=== PATIENT | female | born 1975 | race Caucasian/White ===

== ENCOUNTER 2019-06-07 20:23 | Emergency (ER) | payer MEDICAID ==
[~2019-06-07] VITALS: Ht 167.6 cm; Wt 125.0 kg
[~2019-06-07 20:23] MED LIST: DICL50TA8 PO; IBUP-1985 PO
[2019-06-07] MEDS ORDERED: ketorolac trometh inj. 60 MG/2 ML VIAL IM ONE (20:45)
[2019-06-07] MEDS ORDERED: triamcinolone acetonide 40mg/ml inj IM ONE (20:45)
[2019-06-07] MEDS ORDERED: NAPR-56 PO (20:48)
[2019-06-07] MEDS ORDERED: HYDR-4383 PO (20:48)
[2019-06-07 21:24] VITALS: BP 133/95
== END 2019-06-07 21:25 | disposition home or self-care (01) ==
LOC: ER 20:23
DX: G56.01 Carpal tunnel syndrome, right upper limb (principal); Z88.6 Allergy status to analgesic agent; Z88.5 Allergy status to narcotic agent; Z79.899 Other long term (current) drug therapy
CPT/HCPCS: 29125; 96372; 99283; J1885; J3301

== ENCOUNTER 2019-07-28 08:53 | Emergency (ER) | payer MEDICAID ==
[~2019-07-28] VITALS: Ht 167.6 cm; Wt 127.3 kg
[~2019-07-28 08:53] MED LIST changes: +HYDR-4383 PO
[2019-07-28] MEDS ORDERED: ketorolac tromethamine 15mg/ml inj. IM ONE (09:45)
--- NOTE | 2019-07-28 09:57 | NUR ---
TO CT VIA W/C
[2019-07-28 10:05] LABS: BASOPHILS % (AUTO) 0.6 % (0-1); EOSINOPHILS # (AUTO) 0.3 X10'3 (0-0.9); EOSINOPHILS % (AUTO) 4.5 % (0-6); HEMATOCRIT 34.8 % (35.0-45.0); HEMOGLOBIN 11.5 g/dl (12.0-16.0); LYMPHOCYTES # (AUTO) 1.8 X10'3 (1.1-4.8); MEAN CORPUSCULAR HEMOGLOBIN 30.3 PG (27.0-31.0); MEAN CORPUSCULAR VOLUME 91.7 FL (78-98); MEAN PLATELET VOLUME 6.6 FL (7.4-10.4); MONOCYTES # (AUTO) 0.4 X10'3 (0-0.9); MONOCYTES % (AUTO) 6.5 % (2-12); NEUTROPHILS # (AUTO) 3.4 X10'3 (1.8-7.7); NEUTROPHILS % (AUTO) 57.4 % (42-75); PLATELET COUNT 376 X10'3 (140-440); RED CELL DISTRIBUTION WIDTH 13.8 % (11.5-14.5); WHITE BLOOD COUNT 5.9 X10'3 (4.5-11.0)
[2019-07-28 10:20] LABS: ALANINE AMINOTRANSFERASE 14 U/L (12-78); ALBUMIN 2.8 G/DL (3.4-5.0); ALBUMIN/GLOBULIN RATIO 0.8 (1.1-1.5); ALKALINE PHOSPHATASE 95 IU/L (46-116); ANION GAP 8 (8-16); ASPARTATE AMINO TRANSFERASE 15 U/L (10-37); BILIRUBIN,TOTAL 0.2 MG/DL (0.1-1.0); BLOOD UREA NITROGEN 19 MG/DL (7-18); CALCIUM 8.3 MG/DL (8.5-10.1); CHLORIDE 112 MMOL/L (99-107); CREATININE 0.76 MG/DL (0.40-0.90); GLUCOSE 88 MG/DL (70-104); POTASSIUM 4.2 MMOL/L (3.5-5.1); SODIUM 145 MMOL/L (135-145); TOTAL CARBON DIOXIDE 24.7 MMOL/L (24-32); TOTAL PROTEIN 6.5 G/DL (6.4-8.2); eGFR 84 ML/MIN
[2019-07-28] MEDS ORDERED: LORazepam 1 MG tablet PO ONE (11:50)
[2019-07-28 14:34] VITALS: BP 115/60
[2019-07-28] MEDS ORDERED: TRAM50TA2 PO (14:43)
== END 2019-07-28 14:57 | disposition home or self-care (01) ==
LOC: ER 08:54
DX: S16.1XXA Strain of muscle, fascia and tendon at neck level, initial encounter (principal); R51 Headache; G89.29 Other chronic pain; Z88.6 Allergy status to analgesic agent; Z88.5 Allergy status to narcotic agent; Z88.8 Allergy status to other drugs, medicaments and biological substances; Z79.899 Other long term (current) drug therapy; X58.XXXA Exposure to other specified factors, initial encounter; Y93.89 Activity, other specified; Y92.89 Other specified places as the place of occurrence of the external cause; Y99.8 Other external cause status
CPT/HCPCS: 36415; 72125; 72141; 80053; 85025; 85610; 96372; 99284; J1885

== ENCOUNTER 2019-08-22 19:17 | Emergency (ER) | payer MEDICAID ==
[~2019-08-22] VITALS: Ht 167.6 cm; Wt 131.8 kg
[~2019-08-22 19:17] MED LIST changes: +TRAM50TA2 PO
[2019-08-22] MEDS ORDERED: ROBDML PO (20:45)
[2019-08-22] MEDS ORDERED: BENZ-16 PO (20:45)
[2019-08-22 20:56] VITALS: BP 148/78
== END 2019-08-22 20:53 | disposition home or self-care (01) ==
LOC: ER 19:18
DX: J06.9 Acute upper respiratory infection, unspecified (principal); G89.29 Other chronic pain; Z88.6 Allergy status to analgesic agent; Z88.8 Allergy status to other drugs, medicaments and biological substances; Z79.899 Other long term (current) drug therapy; Z79.1 Long term (current) use of non-steroidal anti-inflammatories (NSAID)
CPT/HCPCS: 99283

== ENCOUNTER 2020-08-15 15:30 | Emergency (ER) | payer MEDICAID, OTHER ==
[~2020-08-15] VITALS: Ht 167.6 cm; Wt 131.8 kg
[~2020-08-15 15:30] MED LIST changes: -TRAM50TA2 PO
--- NOTE | 2020-08-15 15:31 | NUR ---
14 YEAR OLD DAUGHTER OLIVER IS HERE WITH PT.
[2020-08-15] MEDS ORDERED: HYDROcodone/acetaminophen 5mg/325mg tablet PO ONE (16:40)
[2020-08-15] MEDS ORDERED: ondansetron 4mg rapidly disintigrating tab PO ONE (16:40)
[2020-08-15 17:35] VITALS: BP 133/97
== END 2020-08-15 17:36 | disposition home or self-care (01) ==
LOC: ER 15:30
DX: R07.89 Other chest pain (principal); R11.0 Nausea; G89.29 Other chronic pain; Z72.89 Other problems related to lifestyle; Z88.8 Allergy status to other drugs, medicaments and biological substances; Z88.5 Allergy status to narcotic agent; Z79.899 Other long term (current) drug therapy; V87.7XXA Person injured in collision between other specified motor vehicles (traffic), initial encounter; Y93.89 Activity, other specified; Y92.89 Other specified places as the place of occurrence of the external cause; Y99.8 Other external cause status
CPT/HCPCS: 71045; 93005; 99283

== ENCOUNTER 2020-12-01 08:52 | Emergency (ER) | payer MEDICAID, OTHER ==
[~2020-12-01] VITALS: Ht 167.6 cm; Wt 130.0 kg
[2020-12-01 09:50] LABS: BASOPHILS # (AUTO) 0.1 X10'3 (0-0.2); EOSINOPHILS # (AUTO) 0.3 X10'3 (0-0.9); EOSINOPHILS % (AUTO) 4.9 % (0-6); HEMATOCRIT 30.8 % (35.0-45.0); HEMOGLOBIN 9.8 g/dl (12.0-16.0); LYMPHOCYTES # (AUTO) 1.3 X10'3 (1.1-4.8); MEAN CORPUSCULAR HEMOGLOBIN 25.5 PG (27.0-31.0); MEAN CORPUSCULAR VOLUME 79.7 FL (78-98); MEAN PLATELET VOLUME 6.1 FL (7.4-10.4); MONOCYTES # (AUTO) 0.4 X10'3 (0-0.9); MONOCYTES % (AUTO) 6.6 % (2-12); NEUTROPHILS # (AUTO) 3.9 X10'3 (1.8-7.7); NEUTROPHILS % (AUTO) 65.5 % (42-75); PLATELET COUNT 485 X10'3 (140-440); RED BLOOD COUNT 3.86 X10'6 (4.20-5.60)
[2020-12-01 10:06] LABS: ALANINE AMINOTRANSFERASE 15 U/L (12-78); ALBUMIN 3.2 G/DL (3.4-5.0); ALBUMIN/GLOBULIN RATIO 0.8 (1.1-1.5); ALKALINE PHOSPHATASE 106 IU/L (46-116); ANION GAP 8 (8-16); ASPARTATE AMINO TRANSFERASE 18 U/L (10-37); BILIRUBIN,TOTAL 0.3 MG/DL (0.1-1.0); BLOOD UREA NITROGEN 20 MG/DL (7-18); BUN/CREATININE RATIO 20.2 (6.6-38.0); CALCIUM 8.5 MG/DL (8.5-10.1); CHLORIDE 106 MMOL/L (99-107); CREATININE 0.99 MG/DL (0.40-0.90); GLUCOSE 99 MG/DL (70-104); POTASSIUM 4.5 MMOL/L (3.5-5.1); SODIUM 138 MMOL/L (135-145); TOTAL CARBON DIOXIDE 24.2 MMOL/L (24-32); TOTAL PROTEIN 7.1 G/DL (6.4-8.2); eGFR 61 ML/MIN
[2020-12-01] MEDS ORDERED: BUSP10TA11 PO (12:36)
[2020-12-01 12:47] VITALS: BP 159/85
== END 2020-12-01 13:22 | disposition home or self-care (01) ==
LOC: ER 08:52
DX: R07.89 Other chest pain (principal); F41.9 Anxiety disorder, unspecified; G89.29 Other chronic pain; F17.200 Nicotine dependence, unspecified, uncomplicated; Z72.89 Other problems related to lifestyle; Z88.8 Allergy status to other drugs, medicaments and biological substances; Z88.5 Allergy status to narcotic agent; Z79.899 Other long term (current) drug therapy
CPT/HCPCS: 36415; 71045; 80053; 83880; 84484; 85025; 93005; 99285

== ENCOUNTER 2021-01-29 05:28 | Day surgery (SDC) | payer MEDICAID ==
[2021-01-23 15:20] LABS: BASOPHILS % (AUTO) 0.6 % (0-1); EOSINOPHILS # (AUTO) 0.2 X10'3 (0-0.9); EOSINOPHILS % (AUTO) 3.1 % (0-6); LYMPHOCYTES # (AUTO) 2.2 X10'3 (1.1-4.8); LYMPHOCYTES % (AUTO) 33.7 % (21-51); MEAN CORPUSCULAR HEMOGLOBIN 23.4 PG (27.0-31.0); MEAN CORPUSCULAR HGB CONC 31.4 g/dL (33.0-36.5); MEAN CORPUSCULAR VOLUME 74.5 FL (78-98); MEAN PLATELET VOLUME 6.2 FL (7.4-10.4); MONOCYTES # (AUTO) 0.4 X10'3 (0-0.9); MONOCYTES % (AUTO) 6.2 % (2-12); NEUTROPHILS # (AUTO) 3.6 X10'3 (1.8-7.7); NEUTROPHILS % (AUTO) 56.4 % (42-75); PRE OP HEMATOCRIT 30.5 % (35.0-45.0); PRE OP PLATELET COUNT 556 X10'3 (140-440); RED BLOOD COUNT 4.09 X10'6 (4.20-5.60); RED CELL DISTRIBUTION WIDTH 16.3 % (11.5-14.5)
[2021-01-23 15:22] LABS: CLARITY,URINE CLEAR (Clear); COLOR,URINE YELLOW (Yellow); GLUCOSE, URINE NEGATIVE (Neg); KETONES,URINE NEGATIVE (Neg); LEUKOCYTE ESTERASE ,URINE SMALL (Neg); NITRITES, URINE NEGATIVE (Neg); OCCULT BLOOD,URINE NEGATIVE (Neg); PROTEIN,URINE NEGATIVE (Neg); UROBILINOGEN,URINE 0.2 E.U/dL (0.2-1.0)
[2021-01-23 15:26] LABS: UA COLLECTION TYPE CLN CATCH MIDSTREAM
[2021-01-23 15:28] LABS: PRE OP HEMOGLOBIN 9.6 g/dL (12.0-16.0)
[2021-01-23 15:28] LABS: BACTERIA,URINE FEW /HPF (Neg); MUCUS STRANDS NONE SEEN /LPF (Neg); RBC,URINE 0-2 /HPF (0-2); SQUAMOUS EPITHELIAL CELL,UR MODERATE /LPF (FEW); WBC,URINE 50-100 /HPF (0-4)
[2021-01-23 15:31] LABS: PRE OP PROTIME 10.6 SECONDS (9.0-12.0)
[2021-01-23 15:32] LABS: ALBUMIN 3.4 G/DL (3.4-5.0); ALBUMIN/GLOBULIN RATIO 0.9 (1.1-1.5); ALKALINE PHOSPHATASE 134 IU/L (46-116); BLOOD UREA NITROGEN 21 MG/DL (7-18); BUN/CREATININE RATIO 23.1 (6.6-38.0); CALCIUM 8.3 MG/DL (8.5-10.1); CHLORIDE 106 MMOL/L (99-107); CREATININE 0.91 MG/DL (0.40-0.90); PRE OP ALT 15 U/L (30-65); PRE OP ANION GAP 13 (8-16); PRE OP AST 17 U/L (10-37); PRE OP BILIRUB, TOTAL 0.2 MG/DL (0.0-1.0); PRE OP GLUCOSE 90 MG/DL (70-104); PRE OP POTASSIUM 3.9 MMOL/L (3.4-5.1); PRE OP SODIUM 142 MMOL/L (135-145); TOTAL CARBON DIOXIDE 23.1 MMOL/L (24-32); eGFR 67 ML/MIN
[2021-01-23 16:33] LABS: HCG SERUM QL NEGATIVE
[2021-01-29] VITALS (9 sets, daily range): BP systolic 112–129; BP diastolic 68–78
[~2021-01-29] VITALS: Ht 167.6 cm; Wt 139.0 kg
[~2021-01-29 05:28] MED LIST changes: +BACL10TA2 PO; +BUSP15TA7 PO; -DICL50TA8 PO; -HYDR-4383 PO; -IBUP-1985 PO; +IBUP-1986 PO; +NORE-111 PO; +ONDA4TAB12 PO; +ringers solution, lacted 1,000 ML IV SCH
[2021-01-29] MEDS ORDERED: ceFOXitin 2GM-NS 100mL ADDvant 100 ML IV ONE (05:30)
[2021-01-29] MEDS ORDERED: famotidine 20mg tablet PO ONE (05:30)
[2021-01-29] MEDS ORDERED: dexamethasone sod phosphate 10mg/ml inj ONE (07:18)
[2021-01-29] MEDS ORDERED: sevoflurane 250ml liquid IH ONE (07:18)
[2021-01-29] MEDS ORDERED: midazolam 1 mg/ML 2ml injection ONE (07:19)
[2021-01-29] MEDS ORDERED: fentaNYL/PF 50MCG/1 ML 2ML syringe ONE (07:19)
[2021-01-29] MEDS ORDERED: propofol inj 20 ML IV ONE (07:21)
[2021-01-29] MEDS ORDERED: LIDOcaine 2% (20mg/ml) 5ml vial ONE (07:21)
[2021-01-29] MEDS ORDERED: ondansetron/PF 4mg/2ml inj ONE (07:40)
[2021-01-29] MEDS ORDERED: meperidine/PF 25mg/ml syringe IV PRN ×3 (08:00)
[2021-01-29] MEDS ORDERED: ringers solution, lacted 1,000 ML IV SCH (08:00)
[2021-01-29] MEDS ORDERED: ondansetron/PF 4mg/2ml inj IV PRN (08:00)
[2021-01-29] MEDS ORDERED: fentaNYL/PF 50MCG/1 ML 2ML syringe IV ONE (08:00)
--- NOTE | 2021-01-29 08:10 | NUR ---
ADMITTED TO PACU FROM OR ACCOMPANIED BY ANESTHESIA. INTIAL PHYSICAL ASSESSMENT DONE AND RECORDED. REPORT RECEIVED FROM ANESTHESIA.
--- NOTE | 2021-01-29 09:30 | NUR ---
DISCHARGE CRITERIA MET, DISCHARGE INSTRUCTIONS GIVEN, DEMONSTRATES VERBAL UNDERSTANDING. DISCHARGED HOME IN GOOD CONDITION.
== END 2021-01-29 09:30 | disposition home or self-care (01) ==
LOC: PAS 05:28
PROVIDERS: ATTEND Obstetrics & Gynecology
DX: N93.9 Abnormal uterine and vaginal bleeding, unspecified (principal); F41.9 Anxiety disorder, unspecified; F32.9 Major depressive disorder, single episode, unspecified; K21.9 Gastro-esophageal reflux disease without esophagitis; D64.9 Anemia, unspecified; G89.29 Other chronic pain; G43.909 Migraine, unspecified, not intractable, without status migrainosus; E66.01 Morbid (severe) obesity due to excess calories; Z68.42 Body mass index [BMI] 45.0-49.9, adult; Z20.822 Contact with and (suspected) exposure to COVID-19; Z79.899 Other long term (current) drug therapy; Z79.01 Long term (current) use of anticoagulants; Z90.49 Acquired absence of other specified parts of digestive tract; Z98.84 Bariatric surgery status; Z87.891 Personal history of nicotine dependence; Z88.5 Allergy status to narcotic agent; Z88.8 Allergy status to other drugs, medicaments and biological substances
CPT/HCPCS: 36415; 58353; 80053; 81001; 82948; 84703; 85025; 85610; 85730; 86885; 86900; 86901; 87088; A4649; J0694; J1100; J2001; J2250; J2405; J2704; J3010; J7030; U0003; U0005; A4355; A4618; J7120

== ENCOUNTER 2022-01-21 17:39 | Emergency (ER) | payer MEDICAID ==
[~2022-01-21] VITALS: Ht 167.6 cm; Wt 132.0 kg
[~2022-01-21 17:39] MED LIST changes: -ringers solution, lacted 1,000 ML IV SCH
[2022-01-21 18:10] VITALS: BP 130/90
[2022-01-21] MEDS ORDERED: CEPH500C81 PO (21:22)
== END 2022-01-21 21:47 | disposition home or self-care (01) ==
LOC: ER 17:40
DX: R11.10 Vomiting, unspecified (principal); T36.8X5A Adverse effect of other systemic antibiotics, initial encounter; G89.29 Other chronic pain; Z87.440 Personal history of urinary (tract) infections; Z72.89 Other problems related to lifestyle; Z88.5 Allergy status to narcotic agent; Z88.8 Allergy status to other drugs, medicaments and biological substances; Z79.2 Long term (current) use of antibiotics; Z79.899 Other long term (current) drug therapy; Y92.89 Other specified places as the place of occurrence of the external cause
CPT/HCPCS: 99283

== ENCOUNTER 2023-08-09 07:15 | Emergency (ER) | payer MEDICAID ==
[~2023-08-09] VITALS: Ht 167.6 cm; Wt 115.0 kg
[2023-08-09] MEDS ORDERED: normal saline 1000ML IV soln IVB ONE (08:10)
[2023-08-09 09:03] LABS: BASOPHILS % (AUTO) 0.3 % (0-1); EOSINOPHILS # (AUTO) 0.1 X10'3 (0-0.9); EOSINOPHILS % (AUTO) 2.5 % (0-6); HEMATOCRIT 41.2 % (35.0-45.0); LYMPHOCYTES # (AUTO) 1.5 X10'3 (1.1-4.8); LYMPHOCYTES % (AUTO) 29.8 % (21-51); MEAN CORPUSCULAR HEMOGLOBIN 32.8 PG (27.0-31.0); MEAN CORPUSCULAR HGB CONC 33.9 g/dL (33.0-36.5); MEAN CORPUSCULAR VOLUME 96.8 FL (78-98); MEAN PLATELET VOLUME 7.3 FL (7.4-10.4); MONOCYTES # (AUTO) 0.3 X10'3 (0-0.9); MONOCYTES % (AUTO) 5.9 % (2-12); NEUTROPHILS # (AUTO) 3.2 X10'3 (1.8-7.7); NEUTROPHILS % (AUTO) 61.5 % (42-75); PLATELET COUNT 326 X10'3 (140-440); RED BLOOD COUNT 4.25 X10'6 (4.20-5.60); RED CELL DISTRIBUTION WIDTH 12.9 % (11.5-14.5); WHITE BLOOD COUNT 5.2 X10'3 (4.5-11.0)
[2023-08-09 09:04] LABS: ALBUMIN 3.5 G/DL (3.4-5.0); ALBUMIN/GLOBULIN RATIO 1.1 (1.1-1.5); ANION GAP 7 (8-16); ASPARTATE AMINO TRANSFERASE 186 U/L (10-37); BILIRUBIN,TOTAL 0.5 MG/DL (0.1-1.0); BLOOD UREA NITROGEN 24 MG/DL (7-18); CALCIUM 9.1 MG/DL (8.5-10.1); CHLORIDE 106 MMOL/L (99-107); CREATININE 0.96 MG/DL (0.40-0.90); GLUCOSE 88 MG/DL (70-104); POTASSIUM 3.8 MMOL/L (3.5-5.1); SODIUM 139 MMOL/L (135-145); TOTAL CARBON DIOXIDE 26.4 MMOL/L (24-32); TOTAL PROTEIN 6.7 G/DL (6.4-8.2); eCRCL 69 ML/MIN; eGFR 63 ML/MIN
[2023-08-09 09:05] LABS: ALANINE AMINOTRANSFERASE 80 U/L (12-78); ALKALINE PHOSPHATASE 132 IU/L (46-116); LIPASE 33 U/L (16-77)
[2023-08-09 10:17] VITALS: TEMP 97.7
[2023-08-09] MEDS ORDERED: dicyclomine 10 MG capsule PO ONE (10:30)
[2023-08-09] MEDS ORDERED: DICY10CA88 PO (10:55)
[2023-08-09] MEDS ORDERED: ringers solution, lacted 1,000 ML IV ONE (11:00)
[2023-08-09 11:29] VITALS: PULSE 52; RESP 16; O2SAT 100
[2023-08-09 11:34] VITALS: BP 101/56
--- NOTE | 2023-08-09 12:00 | NUR ---
I AGREE WITH THE ASSESSMENT PER Daryl PROCTOR LVN.
== END 2023-08-09 12:18 | disposition home or self-care (01) ==
LOC: ER 07:16
DX: K29.00 Acute gastritis without bleeding (principal); B96.89 Other specified bacterial agents as the cause of diseases classified elsewhere; E86.0 Dehydration; R74.01 Elevation of levels of liver transaminase levels; G89.29 Other chronic pain; Z72.89 Other problems related to lifestyle; Z90.49 Acquired absence of other specified parts of digestive tract; Z98.890 Other specified postprocedural states; Z88.5 Allergy status to narcotic agent; Z88.2 Allergy status to sulfonamides; Z88.8 Allergy status to other drugs, medicaments and biological substances; Z79.899 Other long term (current) drug therapy
CPT/HCPCS: 36415; 74018; 80053; 83690; 85025; 96360; 96361; 99284; J7030; J7120

== ENCOUNTER 2024-01-22 12:52 | Outpatient (CLI) | payer MEDICAID | END 2024-01-22 23:59 | disposition home or self-care (01) | LOC: RAD 12:52 | PROVIDERS: ATTEND Nurse Practitioner | DX: M25.562 Pain in left knee (principal); M25.561 Pain in right knee | CPT/HCPCS: 73560 ==